=== PATIENT | female | born 1975 | race Caucasian/White ===

== ENCOUNTER 2019-03-30 22:31 | Emergency (ER) | payer MEDICAID ==
[~2019-03-30 22:31] MED LIST: ASPIRIN ADULT L81 M4 PO; AZULFIDINE500 MG PO; CELEXA40 MG PO; FLO4 PO; FOLIC ACID1 MG PO; XAN1 PO
[2019-03-30 22:36] VITALS: Ht 160 cm
[2019-03-30 23:25] LABS: BASOPHIL % 0.6 % (0-2); PLATELET COUNT 398 x10^3mcL (130-400); RED CELL DISTRIBUTION WIDTH 15.6 % (11.5-14.5)
[2019-03-30 23:34] LABS: CALCIUM 8.7 mg/dL (8.5-10.1); CARBON DIOXIDE 32.9 mmol/L (21-32); CHLORIDE SERUM 102 mmol/L (98-107); GFR1 > 60 mL/min; GLUCOSE SERUM 85 mg/dL (74-106); POTASSIUM SERUM 3.8 mmol/L (3.5-5.1); SODIUM SERUM 142 mmol/L (136-145)
[2019-03-30 23:38] LABS: ALKALINE PHOSPHATASE 92 U/L (46-116); ALT/SGPT 42 U/L (14-59); AST/SGOT 60 U/L (15-37); BILIRUBIN TOTAL 0.5 mg/dL (0.20-1.00); LIPASE 174 IU/L (73-393); TOTAL PROTEIN, SERUM 7.2 g/dL (6.4-8.2)
[2019-03-30 23:44] LABS: ALBUMIN 3.2 g/dL (3.4-5.0)
[2019-03-31 02:06] VITALS: BP 120/62
== END 2019-03-31 02:06 | disposition home or self-care (01) ==
LOC: ED 22:31
DX: K29.70 Gastritis, unspecified, without bleeding (principal); Z91.013 Allergy to seafood; Z88.5 Allergy status to narcotic agent
CPT/HCPCS: J1885; J2405; J7030; Q0092

== ENCOUNTER 2019-08-24 21:10 | Emergency (ER) | payer MEDICAID ==
[~2019-08-24] VITALS: Ht 162.6 cm; Wt 67.1 kg
[2019-08-24 21:20] VITALS: Ht 162.6 cm; Wt 67.1 kg
[2019-08-24 22:18] LABS: BASOPHIL % 0.2 % (0-2)
[2019-08-24 22:19] LABS: PLATELET COUNT 471 x10^3mcL (130-400)
[2019-08-24 23:03] LABS: ALBUMIN 3.9 g/dL (3.4-5.0); ALKALINE PHOSPHATASE 87 U/L (46-116); ALT/SGPT 27 U/L (14-59); AST/SGOT 42 U/L (15-37); BILIRUBIN TOTAL 0.4 mg/dL (0.20-1.00); CALCIUM 8.8 mg/dL (8.5-10.1); CHLORIDE SERUM 82 mmol/L (98-107); CREATININE SERUM 0.7 mg/dL (0.6-1.0); GFR1 > 60 mL/min; GLUCOSE SERUM 100 mg/dL (74-106); SODIUM SERUM 125 mmol/L (136-145); TOTAL PROTEIN, SERUM 7.3 g/dL (6.4-8.2)
[2019-08-24 23:06] LABS: POTASSIUM SERUM 2.1 mmol/L (3.5-5.1)
[2019-08-25 02:49] LABS: CALCIUM 8.9 mg/dL (8.5-10.1); CARBON DIOXIDE 32.8 mmol/L (21-32); CHLORIDE SERUM 90 mmol/L (98-107); CREATININE SERUM 0.7 mg/dL (0.6-1.0); GFR1 > 60 mL/min; GLUCOSE SERUM 106 mg/dL (74-106); SODIUM SERUM 131 mmol/L (136-145)
[2019-08-25 02:51] LABS: POTASSIUM SERUM 2.7 mmol/L (3.5-5.1)
[2019-08-25 03:26] VITALS: BP 117/68
== END 2019-08-25 03:26 | disposition home or self-care (01) ==
LOC: ED 21:10
PROVIDERS: Emergency Medicine
DX: E87.6 Hypokalemia (principal); T78.1XXA Other adverse food reactions, not elsewhere classified, initial encounter; E87.1 Hypo-osmolality and hyponatremia; E87.8 Other disorders of electrolyte and fluid balance, not elsewhere classified; F41.9 Anxiety disorder, unspecified; R00.2 Palpitations; L50.9 Urticaria, unspecified; Z83.79 Family history of other diseases of the digestive system; X58.XXXA Exposure to other specified factors, initial encounter
CPT/HCPCS: J2060; J3475; J7030; J7512; Q0163